=== PATIENT | male | born 1995 | race Caucasian/White ===

== ENCOUNTER → 2016-10-07 | Outpatient (CLI) | payer OTHER ==
--- NOTE | 2016-10-07 08:08 | DIAGNOSTIC IMAGING REPORT ---
ABDOMEN COMPLETE (US) CLINICAL HISTORY: 21 years-old Male presenting with ABD PAIN WHILE LAYING ON SIDES. TECHNIQUE: Real-time grayscale and limited color Doppler ultrasound imaging of the abdomen was performed. COMPARISON: None. FINDINGS: Pancreas: Visualized portions of the pancreatic head and body normal. Liver: Normal echogenicity and echotexture. The liver measures 13.1 cm in maximal sagittal dimension. Main portal vein patent with normal directional flow. Biliary: No intrahepatic biliary ductal dilatation. Common bile duct measures up to 5-6 mm in diameter. No sonographic evidence of choledocholithiasis. Gallbladder: Normal in appearance without evidence of gallstones, gallbladder wall thickening, or pericholecystic fluid. Spleen: Normal in echogenicity and size, measuring 10.7 cm in length. Kidneys: Normal in size and echogenicity. Right kidney measures 9.9 cm, and left kidney measures 9.8 cm. No hydronephrosis. Vasculature: Visualized portions of the IVC and abdominal aorta normal. Ascites: None. IMPRESSION: No cholelithiasis. Mild prominence of the common bile duct, which is top normal in size. No convincing evidence of acute intra-abdominal pathology. Electronically signed by: Bijan Dee M.D. 10/07/2016 8:07 AM Dictated Date/Time: 10/07/2016 8:05 AM
== END | disposition home or self-care (01) ==
LOC: C.ULTR 07:36
PROVIDERS: ATTEND Family Medicine
DX: R10.84 Generalized abdominal pain (principal)